=== PATIENT | female | born 1970 | race Caucasian/White ===

== ENCOUNTER → 2021-05-20 | Outpatient (CLI) | payer BC, OTHER ==
[~2021-05-20] MED LIST: IBUPROFEN600 MG PO; MEDROL4 MG PO; ZITHROMAX1 GM PO
== END ==
LOC: KOH-I 10:58
DX: M25.561 Pain in right knee (principal)
CPT/HCPCS: 73564

== ENCOUNTER 2021-05-24 11:21 | Emergency (ER) | payer BC, OTHER ==
[2021-05-24 12:45] LABS: HEMOGLOBIN 15.1 gm/dl (12.3-15.3); RED BLOOD COUNT 4.93 M/UL (4.00-5.10); WHITE BLOOD COUNT 8.4 K/UL (4.5-11.0)
[2021-05-24 13:29] LABS: BUN/CREATININE RATIO 25 (0-10)
[2021-05-24] MEDS ORDERED: IBUPROFEN600 MG PO (14:00)
== END 2021-05-24 14:30 | disposition home or self-care (01) ==
LOC: ER1 11:21
PROVIDERS: Emergency Medicine
DX: M25.561 Pain in right knee (principal); J44.9 Chronic obstructive pulmonary disease, unspecified; F17.200 Nicotine dependence, unspecified, uncomplicated
CPT/HCPCS: 73564; 80053; 84550; 85025; 85379; 85652; 86140; 99283